=== PATIENT | male | born 1955 | race Caucasian/White ===

== ENCOUNTER → 2023-08-17 14:26 | Outpatient (REF) | payer OTHER, SELFPAY | LOC: RAD 14:26 | PROVIDERS: ATTENDING PHYSICIAN Nurse Practitioner Family | DX: M54.50 Low back pain, unspecified (principal) | CPT/HCPCS: 72110 ==

== ENCOUNTER → 2024-06-10 10:20 | Outpatient (REF) | payer MEDICARE, SELFPAY | LOC: RAD 10:20 | PROVIDERS: ATTENDING PHYSICIAN Internal Medicine Critical Care Medicine; FAMILY PHYSICIAN Family Medicine | DX: R91.8 Other nonspecific abnormal finding of lung field (principal) | CPT/HCPCS: 71250 ==

== ENCOUNTER → 2024-07-17 15:17 | Outpatient (REF) | payer OTHER, SELFPAY | LOC: RAD 15:17 | PROVIDERS: ATTENDING PHYSICIAN Radiology Diagnostic Radiology; FAMILY PHYSICIAN Family Medicine | DX: S05.50XA Penetrating wound with foreign body of unspecified eyeball, initial encounter (principal) | CPT/HCPCS: 70030 ==

== ENCOUNTER → 2024-07-18 20:37 | Outpatient (REF) | payer OTHER, SELFPAY | LOC: MRI 20:37 | PROVIDERS: ATTENDING PHYSICIAN Internal Medicine Rheumatology; FAMILY PHYSICIAN Family Medicine | DX: M54.50 Low back pain, unspecified (principal) | CPT/HCPCS: 72148 ==

== ENCOUNTER → 2024-07-25 08:22 | Emergency (ER) | payer OTHER, SELFPAY ==
[2024-07-25] VITALS (39 sets, daily range): BP systolic 77–150; BP diastolic 52–115; BMI 19.7
[2024-07-25] MEDS: NSS 1000 IV (09:00)
[2024-07-25] MEDS: CARDIZEM 15 MG IV (09:00)
[2024-07-25 09:02] LABS: % Basophils 0.6 % (0-2); % Eosinophils 2.1 % (0-6); % Immature Granulocytes 0.6 % (0-0.5); % Lymphocytes 10.5 % (20.5-51.1); % Monocytes 8.4 % (1.7-9.3); % Neutrophils 77.8 % (42.2-75.2); Absolute Basophils 0.1 10^3/uL (0-0.2); Absolute Eosinophils 0.3 10^3/uL (0-0.7); Absolute Immature Granulocytes 0.1 10^3/uL (0-0.05); Absolute Lymphocytes 1.7 10^3/uL (1.2-3.4); Absolute Monocytes 1.3 10^3/uL (0.1-0.6); Absolute Neutrophils 12.2 10^3/uL (1.4-6.5); Hematocrit 43.8 % (39.0-52.0); Mean Corpuscular Hgb 27.1 pg (27.0-31.0); Mean Corpuscular Volume 84.9 fL (80.0-94.0); Mean Platelet Volume 9.8 fL (7.4-10.4); Nucleated Red Blood Cells % 0 % (-); Platelet Count 345 10^3/uL (130-400); Red Blood Cell Count 5.16 10^6/uL (4.70-6.10); Red Cell Dist. Width 19.5 % (11.5-14.5); White Blood Cell Count 15.7 10^3/uL (4.8-10.8)
--- NOTE | 2024-07-25 09:05 | ED.GENMED ---
History of Present Illness
<Marcello Rodgers Jr., PA-C - Last Filed: 07/25/24 13:06>
General
Chief Complaint: Chest Pain
Source: patient
Exam Limitations: none
Time Seen by Provider: 07/25/24 08:37
Nursing documentation reviewed up to this point in time: agreed with
History of Present Illness
History of Present Illness:
68-year-old male past medical history of COPD, paroxysmal A-fib presenting to the emergency department today with concern outpatient started last night. Ongoing this morning has some lightheadedness some mild shortness of breath associated to mild
chest pain. Has had this many times in the past. Has been cardioverted in the past. Not currently anticoagulated.
Past History
<Marcello Rodgers Jr., PA-C - Last Filed: 07/25/24 13:06>
Past History
ED Past Medical History: Arrthythmia (Atrial fib), COPD, GERD, HTN, Hypercholesterolemia and Other (SVT with ablation, prostate cancer, IBS); Negative IDDM or NIDDM
ED Past Surgical History: Cardiac and Orthopedic
Social History
Tobacco: Smoker
Alcohol: Occasional
Drug: None
Personal:
Living: with family
Employment: Disabled
Family History
Family History: Hypertension and CAD
Review of Systems
<Marcello Rodgers Jr., PA-C - Last Filed: 07/25/24 13:06>
Review of Systems
Allergies reviewed?: Yes
All Other Systems: ROS reviewed and negative except as documented in HPI and ROS
Phy Exam
<Marcello Rodgers Jr., PA-C - Last Filed: 07/25/24 13:06>
Physical Exam
Physical Exam:
GENERAL: Alert , in no apparent distress
EYE: pupils equal and reactive
NECK: Supple, no significant adenopathy.
ENT: o/p clr, mmm.
CARDIAC: Regular rate and rhythm .
LUNGS: Clear breath sounds bilaterally, no acute respiratory distress, no wheezes/rales/rhonchi
ABDOMEN: Soft, without focal tenderness, no r/g, no cvat
NEUROLOGICAL: Alert and oriented, no focal neuro deficits
SKIN: Warm and dry, skin intact.
MUSCULOSKELETAL: No edema, well perfused.
PSYCH: Normal and appropriate interaction.
She is here yeah yeah yeah yeah for
Scores
<Marcello Rodgers Jr., PA-C - Last Filed: 07/25/24 13:06>
Heart Score for Chest Pain Patients
STEMI patient?: Not applicable
Course
<Marcello Rodgers Jr., PA-C - Last Filed: 07/25/24 13:06>
Orders/Labs/Results
Orders:
Orders
07/25/24 08:22
Electrocardiogram (*1) Urgent
Reason for Study: Atrial Fibrillation
07/25/24 08:23
EKG- Treatment ONCE
07/25/24 08:40
Complete Blood Count/With Diff Urgent
Comprehensive Metabolic Panel Urgent
PT/INR [Prothrombin Time] Urgent
Troponin I Urgent
07/25/24 08:43
0.9% Sodium Chloride 1000 ml [Nss] 1,000 ml IV BOLUS
Diltiazem HCl [Cardizem] 15 mg IV NOW STA
07/25/24 11:26
Propofol [Diprivan] 20 ml .ROUTE .STK-MED
07/25/24 12:07
Propofol [Diprivan] 50 mg IV NOW STA
Abnormal Lab Results
07/25/24
08:40
WBC 15.7 H 10^3/uL
(4.8-10.8)
MCHC 32.0 L g/dL
(33.0-37.0)
RDW 19.5 H %
(11.5-14.5)
Abs Immat Gran (auto) 0.1 H 10^3/uL
(0-0.05)
Absolute Neuts (auto) 12.2 H 10^3/uL
(1.4-6.5)
Absolute Monos (auto) 1.3 H 10^3/uL
(0.1-0.6)
Immature Gran % 0.6 H %
(0-0.5)
Neutrophils % 77.8 H %
(42.2-75.2)
Lymphocytes % 10.5 L %
(20.5-51.1)
Glucose 114 H mg/dl
(70-99)
Total Bilirubin 1.5 H mg/dl
(0.2-1.3)
Total Protein 6.1 L g/dl
(6.3-8.2)
07/25/24 08:40
07/25/24 08:40
Vital Signs
Initial and Last Documented VS:
Initial Vital Signs
Temp Pulse Resp Pulse Ox
97.8 F 148 16 98
07/25/24 08:28 07/25/24 08:28 07/25/24 08:28 07/25/24 08:28
Last Documented Vital Signs
Temp Pulse Resp BP Pulse Ox
97.9 F 83 19 150/84 95
07/25/24 12:48 07/25/24 12:48 07/25/24 12:48 07/25/24 12:48 07/25/24 12:48
<Magdaleno Roman MD - Last Filed: 07/25/24 10:18>
Orders/Labs/Results
Orders:
Orders
07/25/24 08:22
Electrocardiogram (*1) Urgent
Reason for Study: Atrial Fibrillation
07/25/24 08:23
EKG- Treatment ONCE
07/25/24 08:40
Complete Blood Count/With Diff Urgent
Comprehensive Metabolic Panel Urgent
PT/INR [Prothrombin Time] Urgent
Troponin I Urgent
07/25/24 08:43
0.9% Sodium Chloride 1000 ml [Nss] 1,000 ml IV BOLUS
Diltiazem HCl [Cardizem] 15 mg IV NOW STA
07/25/24 11:26
Propofol [Diprivan] 20 ml .ROUTE .STK-MED
07/25/24 12:07
Propofol [Diprivan] 50 mg IV NOW STA
Abnormal Lab Results
07/25/24
08:40
WBC 15.7 H 10^3/uL
(4.8-10.8)
MCHC 32.0 L g/dL
(33.0-37.0)
RDW 19.5 H %
(11.5-14.5)
Abs Immat Gran (auto) 0.1 H 10^3/uL
(0-0.05)
Absolute Neuts (auto) 12.2 H 10^3/uL
(1.4-6.5)
Absolute Monos (auto) 1.3 H 10^3/uL
(0.1-0.6)
Immature Gran % 0.6 H %
(0-0.5)
Neutrophils % 77.8 H %
(42.2-75.2)
Lymphocytes % 10.5 L %
(20.5-51.1)
Glucose 114 H mg/dl
(70-99)
Total Bilirubin 1.5 H mg/dl
(0.2-1.3)
Total Protein 6.1 L g/dl
(6.3-8.2)
07/25/24 08:40
07/25/24 08:40
Vital Signs
Initial and Last Documented VS:
Initial Vital Signs
Temp Pulse Resp Pulse Ox
97.8 F 148 16 98
07/25/24 08:28 07/25/24 08:28 07/25/24 08:28 07/25/24 08:28
Last Documented Vital Signs
Temp Pulse Resp BP Pulse Ox
97.9 F 83 19 150/84 95
07/25/24 12:48 07/25/24 12:48 07/25/24 12:48 07/25/24 12:48 07/25/24 12:48
Procedures
<Marcello Rodgers Jr., PA-C - Last Filed: 07/25/24 13:06>
Moderate Sedation
ASA Risk Score: Class II
Chart and allergies reviewed: Yes
Consent for anesthesia obtained: Yes
Time out completed (validating right patient & procedure): Yes
Moderate Sedation Start Time(when first medication is given): 12:07
History of difficult intubation: No
Airway free of obstruction: Yes
Patient has a gag reflex: Yes
Patient is able to open mouth: Yes
Patient has no dentures: Yes
Patient has no loose teeth: Yes
Medication administered by Provider during Moderate Sedation: IV Propofol (mg)
Total dose administered: 50
Time drug administered: 12:07
Cardioversion
Indication:: Afib
Performed by:: Dr. Roman, Myself
Synchronized?: Yes
Energy Used: 200 joules
Number of attempts: 1
Successful?: Yes
Complications: none
ASA Risk Score: Class II
Any reaction or bad outcome to prior sedation/anesthesia?: No history of a reaction
Sedation level to be attained: moderate
Chart and allergies reviewed: Yes
Patient reassessed prior to sedation: Yes
Time out completed at (validating right patient & procedure): 12:07
History of difficult intubation: No
Airway free of obstruction: Yes
Patient has a gag reflex: Yes
Patient is able to open mouth: Yes
Patient has no dentures: Yes
Patient has no loose teeth: Yes
Medication administered by Provider during Moderate Sedation: IV Propofol (mg)
Total dose administered: 50
Time drug administered: 12:07
Start Time: 12:07
Stop Time: 12:18
<Marcello Rodgers Jr., PA-C - Last Filed: 07/25/24 13:06>
MDM/Problems Addressed
MDM/Problems Addressed:
68-year-old male presenting to the emergency department today with concerns of palpitations for the last night. Patient appears to be in A-fib with rapid ventricular response. Patient not on any rate control meds at baseline. Heart rate in the
120s to 140s otherwise vital signs are normal. Patient no distress. Initial labs showing elevated white count. Patient was given dose of Cardizem with improving heart rate patient still somewhat symptomatic. Patient is requesting cardioversion.
Case discussed with cardiology that was okay with proceeding with cardioversion at this point. Cardioversion was performed and successful. Patient otherwise stable for discharge on [facility].
<Marcello Rodgers Jr., PA-C - Last Filed: 07/25/24 13:06>
*Critical Care Note
Total Time (30-74mins, 75-104mins- exclusive of procedures): Not Applicable
ED Attending Note
<Marcello Rodgers Jr., PA-C - Last Filed: 07/25/24 13:06>
-
Portions of this chart may have been created with voice recognition software.� Occasional wrong word or��sound alike� substitutions may have occurred due to the inherent limitations of voice recognition software.
<Magdaleno Roman MD - Last Filed: 07/25/24 10:18>
ED Attending Note
Patient seen and examined by attending physician: Yes
ED Attending Note:
I have seen and evaluated the patient with a [id number] encounter. I have spoken to the advance practicer provider and involved in the medical history, the physical exam, medical decision making.
Evaluation and management service: agree unless noted differently below.
Results interpretation: agree unless noted differently below.
Focused HPI: 68-year-old male with history as documented notable for paroxysmal A-fib presents to the ER with his for evaluation of chest discomfort, fatigue consistent with his normal A-fib symptoms. He says that they started abruptly at
10:30 PM last night, persisted this morning and so he came to the ER. He denies any other complaints. He is not on long-term anticoagulation.
Physical exam: Awake alert no distress. Tachycardic otherwise normal vitals. Irregular regular rhythm. No edema in the legs.
Medical Decision Makin-year-old male presents with his typical A-fib symptoms. EKG confirms A-fib with RVR. He was rate controlled successfully but still mildly symptomatic, he is requested to be cardioverted. Discussed with cardiology given
rather clear onset reasonable to proceed with ED cardioversion. Had a long discussion about risks and benefits given lack of long-term anticoagulation patient wishes to proceed with the procedure.
Discharge Plan
Departure
Patient Disposition: Home (Routine Discharge)
Date of Disposition: 07/25/24
Time of Disposition: 13:02
Patient with high blood pressure during this ER visit?: No
Condition: Good
Covid-19: Not Applicable
Discharge Problem:
Atrial fibrillation
Instructions: Atrial fibrillation - Discharge instructions, MODERATE SEDATION ADULT
Prescriptions:
New
Eliquis 5 mg tablet
5 mg PO BID 28 Days Qty: 56 0RF
No Action
folic acid 1 MG tablet
1 mg PO DAILY
multivitamin Tablet
1 tab PO DAILY
cholecalciferol (vitamin D3) 50 mcg (2,000 unit) Tablet
50 mcg PO DAILY
acetaminophen [Tylenol] 325 mg Tablet
650 mg PO BID
omeprazole 40 mg Capsule,Delayed Release(Dr/Ec)
40 mg PO DAILY
methylprednisolone 2 mg Tablet
6 mg PO DAILY
methotrexate sodium 2.5 mg Tablet
20 mg PO WE
Trelegy Ellipta 100-62.5-25 mcg Blister With Device
1 inh INHALATION R DAILY
Referrals:
Sai Aguilar MD [Family Provider] -
Eric Knowles MD [Active] - (The cardiology office will call you with an appointment to be seen in the next 3 to 4 weeks.)
Activity Restrictions/Additional Instructions:
You came to the emergency department today with concerns of atrial fibrillation. Here you had a cardioversion. You are now in sinus rhythm. Please follow closely with cardiology. Please also take Eliquis twice daily for the next 4 weeks. Return
for any worsening, new or concerning symptoms.
Interventions
Interventions:
*Risk Screen - Suicide Last Done: 07/25/24 08:28
*General Assessment Last Done: 07/25/24 09:00
*Neglect/Abuse Screening Last Done: 07/25/24 08:28
ED- Fall Risk Assessment Last Done: 07/25/24 09:00
*ED COVID-19 Vaccine History Last Done: 07/25/24 09:00
ED- Cardiac Assessment Last Done: 07/25/24 09:00
Discharge Date and Time
Print Language: GHANAIAN
[2024-07-25 09:14] LABS: INR 0.99; PT 13.6 Sec (11.4-14.6)
[2024-07-25 09:17] LABS: ALT (SGPT) 27 U/L (0-50); AST (SGOT) 27 U/L (17-59); Albumin 3.8 g/dl (3.5-5.0); Alkaline Phosphatase 80 U/L (38-126); Blood Urea Nitrogen 14 mg/dl (9-20); Calcium 8.7 mg/dl (8.4-10.2); Carbon Dioxide 29 mmol/L (22-30); Chloride 100 mmol/L (98-107); Glucose 114 mg/dl (70-99); Potassium 4.5 mmol/L (3.5-5.1); Sodium 137 mmol/L (135-145); Total Bilirubin 1.5 mg/dl (0.2-1.3); Total Protein 6.1 g/dl (6.3-8.2)
[2024-07-25 09:29] LABS: Troponin I 0.024 ng/ml
[2024-07-25 09:37] LABS: Estimated Creatinine Clearance 79 ml/min; eGFR > 60.00
[2024-07-25] MEDS: DIPRIVAN 50 MG IV (12:22)
[2024-07-25] MEDS: ELIQUIS 5 MG PO (13:20)
--- NOTE | 2024-07-25 13:20 | EDRN ---
Reviewed discharge instructions with patient and his . Verbalized understanding. taken to car in wheelchair.
== END | disposition home or self-care (01) ==
LOC: EMR 08:22
PROVIDERS: EMERGENCY PHYSICIAN Emergency Medicine; FAMILY PHYSICIAN Family Medicine; OTHER PHYSICIAN Internal Medicine Cardiovascular Disease
DX: I48.91 Unspecified atrial fibrillation (principal); J44.9 Chronic obstructive pulmonary disease, unspecified; I48.0 Paroxysmal atrial fibrillation; E78.00 Pure hypercholesterolemia, unspecified; K21.9 Gastro-esophageal reflux disease without esophagitis; I10 Essential (primary) hypertension; K58.9 Irritable bowel syndrome, unspecified; F17.200 Nicotine dependence, unspecified, uncomplicated; Z79.01 Long term (current) use of anticoagulants; Z82.49 Family history of ischemic heart disease and other diseases of the circulatory system; Z85.46 Personal history of malignant neoplasm of prostate
CPT/HCPCS: 99283; 92960; 96374; 96375; 96361; 80053; 84484; 85025; 85610; 93005

== ENCOUNTER → 2024-07-31 07:32 | Outpatient (REF) | payer OTHER, SELFPAY | LOC: RAD 07:32 | PROVIDERS: ATTENDING PHYSICIAN Internal Medicine Cardiovascular Disease; FAMILY PHYSICIAN Family Medicine | DX: Z72.0 Tobacco use (principal); I73.9 Peripheral vascular disease, unspecified; I48.0 Paroxysmal atrial fibrillation | CPT/HCPCS: 76770; 93922; 93925 ==

== ENCOUNTER 2024-08-06 16:55 | Emergency (ER) | payer OTHER, SELFPAY ==
[2024-08-06] VITALS (12 sets, daily range): BP systolic 98–149; BP diastolic 73–103; BMI 19.7
[2024-08-06 17:21] LABS: % Basophils 0.1 % (0-2); % Eosinophils 0.1 % (0-6); % Immature Granulocytes 1.1 % (0-0.5); % Lymphocytes 5.4 % (20.5-51.1); % Monocytes 6.1 % (1.7-9.3); % Neutrophils 87.2 % (42.2-75.2); Absolute Immature Granulocytes 0.2 10^3/uL (0-0.05); Absolute Lymphocytes 0.8 10^3/uL (1.2-3.4); Absolute Monocytes 0.9 10^3/uL (0.1-0.6); Absolute Neutrophils 12.8 10^3/uL (1.4-6.5); Hematocrit 41.6 % (39.0-52.0); Hemoglobin 13.1 g/dL (13.0-18.0); Mean Corp Hgb Conc. 31.5 g/dL (33.0-37.0); Mean Corpuscular Hgb 26.5 pg (27.0-31.0); Mean Platelet Volume 9.5 fL (7.4-10.4); Nucleated Red Blood Cells % 0 % (-); Platelet Count 333 10^3/uL (130-400); Red Blood Cell Count 4.95 10^6/uL (4.70-6.10); Red Cell Dist. Width 19.5 % (11.5-14.5); White Blood Cell Count 14.7 10^3/uL (4.8-10.8)
[2024-08-06 17:30] LABS: ALT (SGPT) 44 U/L (0-50); AST (SGOT) 29 U/L (17-59); Albumin 4.1 g/dl (3.5-5.0); Alkaline Phosphatase 113 U/L (38-126); Blood Urea Nitrogen 20 mg/dl (9-20); Calcium 9.2 mg/dl (8.4-10.2); Carbon Dioxide 25 mmol/L (22-30); Chloride 99 mmol/L (98-107); Glucose 148 mg/dl (70-99); Potassium 5.2 mmol/L (3.5-5.1); Sodium 134 mmol/L (135-145); Total Bilirubin 0.7 mg/dl (0.2-1.3); Total Protein 6.4 g/dl (6.3-8.2); eGFR > 60.00
--- NOTE | 2024-08-06 17:36 | ED.GENMED ---
History of Present Illness
General
Chief Complaint: Chest Pain
Time Seen by Provider: 08/06/24 17:30
History of Present Illness
History of Present Illness:
TIME OF INITIAL ENCOUNTER: 5:40 PM
HPI: Patient feels that he went back into A-fib at 4 PM today. He has had a Maze procedure in the past. He is known to Dr. Knowles. He was here less than 2 weeks ago and had an electrical cardioversion at that time. He has no significant chest
pain but does have palpitations that he relates to being in atrial fibrillation. He request to be cardioverted.
EXAM:
GENERAL: Well appearing in no distress
HEENT: Moist oral mucosa
CARDIOVASCULAR: No murmurs, tachycardic heart rate, irregular rhythm, No chest wall tenderness
PULMONARY: No respiratory distress, breath sounds are clear and equal
ABDOMEN: Soft with no peritoneal signs, no tenderness
NEUROLOGIC: Excellent strength all extremities, no coordination deficits
PSYCHIATRIC: Appropriate mental status, normal insight and judgement
EXTREMITIES: Nontender, no edema, moves all extremities equally
SKIN: No rash, no lesions
NUMBER AND COMPLEXITY OF PROBLEMS ADDRESSED AT THE ENCOUNTER
� Chronic conditions affecting care: COPD, atrial fibrillation, SVT, has had Maze procedure
� Acute Exacerbation and/or Progression of Chronic Illness: This is an acute but recurring problem
� Differential Diagnosis includes: A-fib with RVR, atrial flutter, electrolyte abnormality
AMOUNT AND/OR COMPLEXITY OF DATA TO BE REVIEWED AND ANALYZED
� I performed an independent evaluation of and my interpretation is:
EKG: A-fib, right bundle branch block, ventricular rate 157
CT:
X-rays:
Laboratory Studies:White count 14.7, sodium 134, potassium 5.2, glucose 148
Other:
� Review of other/old records: I reviewed the last 2 electrical cardioversions and both times there is 50 mg of propofol and 200 J were used
� Clinical information was obtained by an independent historian: I spoke to the at bedside
� Prescriptions/Medications Considered but not given:
� Further testing considered but not performed:
RISK OF COMPLICATIONS AND/OR MORBIDITY OR MORTALITY OF PATIENT MANAGEMENT
� Social determinants of health affecting care: Lives at home
� Discussion with other providers: I notified Dr. Berkowitz of patient's presentation and the patient's request to be electrically cardioverted
� Escalation of care including admission/observation vs risk of discharge considered: Leukocytosis again noted which has been previously seen several times. I notified Dr. Berkowitz who agrees with electrocardioversion and no
medication changes until seen by Dr. Knowles next week. Old records indicate that the patient received 50 mg of propofol�this was given again today however the patient unfortunately did experience pain this time during the procedure.
ANY OTHER UPDATES:
7:20 PM: No further issues, remains in sinus.
Past History
Past History
ED Past Medical History: Arrthythmia (Atrial fib), COPD, GERD, HTN, Hypercholesterolemia and Other (SVT with ablation, prostate cancer, IBS); Negative IDDM or NIDDM
ED Past Surgical History: Cardiac and Orthopedic
Social History
Tobacco: Smoker
Alcohol: Occasional
Drug: None
Personal:
Living: with family
Employment: Disabled
Family History
Family History: Hypertension and CAD
Phy Exam
Physical Exam
Physical Exam:
See HPI
Scores
Heart Score for Chest Pain Patients
STEMI patient?: Not applicable
Course
Orders/Labs/Results
Orders:
Orders
08/06/24 16:56
Electrocardiogram (*1) Urgent
Reason for Study: Chest Pain
Cardiac Monitoring- Treatment ONCE
EKG- Treatment ONCE
IV Insert/Care/Rem.- Treatment PRN
O2 Therapy [RESP] Urgent
Titrate/Wean O2 to maintain O2 sat greater than (%): 90
Special Instructions: Maintain sats >/=90%
Pulse Ox/spot Check [RESP] Urgent
Quantity: 1
Special Instructions: ON ROOM AIR
08/06/24 17:07
Complete Blood Count/With Diff Urgent
Comprehensive Metabolic Panel Urgent
Troponin I Urgent
08/06/24 18:03
Propofol [Diprivan] 20 ml .ROUTE .STK-MED
Abnormal Lab Results
08/06/24
17:07
WBC 14.7 H 10^3/uL
(4.8-10.8)
MCH 26.5 L pg
(27.0-31.0)
MCHC 31.5 L g/dL
(33.0-37.0)
RDW 19.5 H %
(11.5-14.5)
Abs Immat Gran (auto) 0.2 H 10^3/uL
(0-0.05)
Absolute Neuts (auto) 12.8 H 10^3/uL
(1.4-6.5)
Absolute Lymphs (auto) 0.8 L 10^3/uL
(1.2-3.4)
Absolute Monos (auto) 0.9 H 10^3/uL
(0.1-0.6)
Immature Gran % 1.1 H %
(0-0.5)
Neutrophils % 87.2 H %
(42.2-75.2)
Lymphocytes % 5.4 L %
(20.5-51.1)
Sodium 134 L mmol/L
(135-145)
Potassium 5.2 H mmol/L
(3.5-5.1)
Glucose 148 H mg/dl
(70-99)
08/06/24 17:07
08/06/24 17:07
Vital Signs
Initial and Last Documented VS:
Initial Vital Signs
Temp Pulse Resp BP Pulse Ox
36.9 C 160 18 146/103 96
08/06/24 17:00 08/06/24 17:00 08/06/24 17:00 08/06/24 17:00 08/06/24 17:00
Last Documented Vital Signs
Temp Pulse Resp BP Pulse Ox
36.5 C 81 16 118/73 97
08/06/24 19:00 08/06/24 19:10 08/06/24 19:10 08/06/24 19:10 08/06/24 19:10
Procedures
Cardioversion
Indication:: Afib
Performed by:: , Dr. Leon
Synchronized?: Yes
Energy Used: 200 joules
Number of attempts: 1
Successful?: Yes
ASA Risk Score: Class III
Any reaction or bad outcome to prior sedation/anesthesia?: History unavailable
Sedation level to be attained: moderate
Chart and allergies reviewed: Yes
Patient reassessed prior to sedation: Yes
Time out completed at (validating right patient & procedure): 18:40
History of difficult intubation: No
Airway free of obstruction: Yes
Patient has a gag reflex: Yes
Patient is able to open mouth: Yes
Patient has no dentures: Yes
Patient has no loose teeth: Yes
Medication administered by Provider during Moderate Sedation: IV Propofol (mg)
Total dose administered: 50
Time drug administered: 18:40
Start Time: 18:40
Stop Time: 18:51
*Critical Care Note
Total Time (30-74mins, 75-104mins- exclusive of procedures): Not Applicable
ED Attending Note
-
Portions of this chart may have been created with voice recognition software.� Occasional wrong word or��sound alike� substitutions may have occurred due to the inherent limitations of voice recognition software.
Discharge Plan
Departure
Patient Disposition: Home (Routine Discharge)
Date of Disposition: 08/06/24
Time of Disposition: 19:13
Patient with high blood pressure during this ER visit?: Yes
Discharge Problem:
Atrial fibrillation with rapid ventricular response
Instructions: Atrial fibrillation, Cardioversion, MODERATE SEDATION ADULT
Prescriptions:
No Action
folic acid 1 MG tablet
1 mg PO DAILY
multivitamin Tablet
1 tab PO DAILY
cholecalciferol (vitamin D3) 50 mcg (2,000 unit) Tablet
50 mcg PO DAILY
acetaminophen [Tylenol] 325 mg Tablet
650 mg PO BID
omeprazole 40 mg Capsule,Delayed Release(Dr/Ec)
40 mg PO DAILY
methylprednisolone 2 mg Tablet
6 mg PO DAILY
methotrexate sodium 2.5 mg Tablet
20 mg PO WE
Trelegy Ellipta 100-62.5-25 mcg Blister With Device
1 inh INHALATION R DAILY
Eliquis 5 mg tablet
5 mg PO BID 28 Days Qty: 56 0RF
Referrals:
Sai Aguilar MD [Family Provider] -
Eric Knowles MD [Active] - Follow up in 1 week
Activity Restrictions/Additional Instructions:
Follow-up with Dr. Knowles. Return here if worse or other concerns.
Interventions
Interventions:
*Risk Screen - Suicide Last Done: 08/06/24 17:00
*General Assessment Last Done: 08/06/24 17:00
*Neglect/Abuse Screening Last Done: 08/06/24 17:00
ED- Fall Risk Assessment Last Done: 08/06/24 17:49
*ED COVID-19 Vaccine History Last Done: 08/06/24 17:00
ED- Cardiac Assessment Last Done: 08/06/24 17:49
Discharge Date and Time
Print Language: ESTONIAN
[2024-08-06 17:42] LABS: Troponin I < 0.012 ng/ml
== END 2024-08-06 19:38 | disposition home or self-care (01) ==
LOC: EMR 16:55
PROVIDERS: EMERGENCY PHYSICIAN Emergency Medicine; FAMILY PHYSICIAN Family Medicine
DX: I48.91 Unspecified atrial fibrillation (principal); E78.00 Pure hypercholesterolemia, unspecified; I10 Essential (primary) hypertension; J44.9 Chronic obstructive pulmonary disease, unspecified; K21.9 Gastro-esophageal reflux disease without esophagitis; F17.200 Nicotine dependence, unspecified, uncomplicated; Z85.46 Personal history of malignant neoplasm of prostate
CPT/HCPCS: 92960; 99152; 99285; 80053; 84484; 85025; 93005

== ENCOUNTER 2024-08-14 21:56 | Emergency (ER) | payer OTHER, SELFPAY ==
[2024-08-14 22:03] VITALS: BP 120/79
[2024-08-14 22:34] VITALS: BMI 19.7
[2024-08-14 22:48] LABS: % Basophils 0.2 % (0-2); % Eosinophils 0.5 % (0-6); % Immature Granulocytes 0.9 % (0-0.5); % Lymphocytes 8.6 % (20.5-51.1); % Monocytes 7.7 % (1.7-9.3); % Neutrophils 82.1 % (42.2-75.2); Absolute Eosinophils 0.1 10^3/uL (0-0.7); Absolute Immature Granulocytes 0.1 10^3/uL (0-0.05); Absolute Lymphocytes 1.4 10^3/uL (1.2-3.4); Absolute Monocytes 1.2 10^3/uL (0.1-0.6); Absolute Neutrophils 13.3 10^3/uL (1.4-6.5); Hematocrit 40.9 % (39.0-52.0); Hemoglobin 12.9 g/dL (13.0-18.0); Mean Corp Hgb Conc. 31.5 g/dL (33.0-37.0); Mean Corpuscular Hgb 26.5 pg (27.0-31.0); Mean Corpuscular Volume 84.2 fL (80.0-94.0); Mean Platelet Volume 8.8 fL (7.4-10.4); Nucleated Red Blood Cells % 0 % (-); Platelet Count 328 10^3/uL (130-400); Red Blood Cell Count 4.86 10^6/uL (4.70-6.10); White Blood Cell Count 16.2 10^3/uL (4.8-10.8)
--- NOTE | 2024-08-14 22:59 | ED.GENMED ---
History of Present Illness
General
Chief Complaint: Chest Pain
Source: patient
Exam Limitations: none
Time Seen by Provider: 08/14/24 22:52
History of Present Illness
History of Present Illness:
See MDM
Past History
Past History
ED Past Medical History: Arrthythmia (Atrial fib), COPD, GERD, HTN, Hypercholesterolemia and Other (SVT with ablation, prostate cancer, IBS); Negative IDDM or NIDDM
ED Past Surgical History: Cardiac and Orthopedic
Social History
Tobacco: Smoker
Alcohol: Occasional
Drug: None
Personal:
Living: with family
Employment: Disabled
Family History
Family History: Hypertension and CAD
Phy Exam
Physical Exam
Physical Exam:
See MDM
Scores
Heart Score for Chest Pain Patients
STEMI patient?: No
History: Slightly or Non-Suspicious
ECG: Normal
Age: >/= 65 years
Risk Factors: 1 or 2 Risk Factors
Troponin: </= Normal Limit
Heart Score for Chest Pain Patients: 3
Heart Score Risk: 2.5% MACE over next 6 weeks
Course
Orders/Labs/Results
Orders:
Orders
08/14/24 21:58
Electrocardiogram (*1) Urgent
Reason for Study: Chest Pain
EKG- Treatment ONCE
08/14/24 22:12
Cardiac Monitoring- Treatment ONCE
IV Insert/Care/Rem.- Treatment PRN
O2 Therapy [RESP] Urgent
Titrate/Wean O2 to maintain O2 sat greater than (%): 90
Special Instructions: Maintain sats >/=90%
Pulse Ox/spot Check [RESP] Urgent
Quantity: 1
Special Instructions: ON ROOM AIR
08/14/24 22:38
Complete Blood Count/With Diff Urgent
Comprehensive Metabolic Panel Urgent
Troponin I Urgent
08/14/24 22:58
Diltiazem HCl [Cardizem] 20 mg IV NOW STA
08/15/24 00:07
Propofol [Diprivan] 20 ml .ROUTE .STK-MED
08/15/24 00:23
Ondansetron Injectable [Zofran] 4 mg IV NOW STA
08/15/24 00:32
EKG [Electrocardiogram (*1)] Urgent
Reason for Study: Tachycardia
EKG- Treatment ONCE
Abnormal Lab Results
08/14/24
22:38
WBC 16.2 H 10^3/uL
(4.8-10.8)
Hgb 12.9 L g/dL
(13.0-18.0)
MCH 26.5 L pg
(27.0-31.0)
MCHC 31.5 L g/dL
(33.0-37.0)
RDW 19.0 H %
(11.5-14.5)
Abs Immat Gran (auto) 0.1 H 10^3/uL
(0-0.05)
Absolute Neuts (auto) 13.3 H 10^3/uL
(1.4-6.5)
Absolute Monos (auto) 1.2 H 10^3/uL
(0.1-0.6)
Immature Gran % 0.9 H %
(0-0.5)
Neutrophils % 82.1 H %
(42.2-75.2)
Lymphocytes % 8.6 L %
(20.5-51.1)
Glucose 117 H mg/dl
(70-99)
Total Protein 6.0 L g/dl
(6.3-8.2)
08/14/24 22:38
08/14/24 22:38
Vital Signs
Initial and Last Documented VS:
Initial Vital Signs
Temp Pulse Resp BP Pulse Ox
97.8 F 95 16 120/79 93
08/14/24 22:03 08/14/24 22:03 08/14/24 22:03 08/14/24 22:03 08/14/24 22:03
Last Documented Vital Signs
Temp Pulse Resp BP Pulse Ox
98.0 F 69 17 111/57 100
08/15/24 00:30 08/15/24 00:40 08/15/24 00:40 08/15/24 00:40 08/15/24 00:40
Procedures
Moderate Sedation
ASA Risk Score: Class II
Chart and allergies reviewed: Yes
Consent for anesthesia obtained: Yes
Time out completed (validating right patient & procedure): Yes
Moderate Sedation Start Time(when first medication is given): 12:30
History of difficult intubation: No
Airway free of obstruction: Yes
Patient has a gag reflex: Yes
Patient is able to open mouth: Yes
Patient has no dentures: Yes
Patient has no loose teeth: Yes
Medication administered by Provider during Moderate Sedation: IV Propofol (mg)
Total dose administered: 75
Time drug administered: 12:30
Moderate Sedation Procedure End Time: 12:45
Comment: Time out 1228
Cardioversion
Indication:: Afib
Performed by:: Meño Stack DO
Synchronized?: Yes
Energy Used: 150 joules
Number of attempts: 1
Successful?: Yes
ASA Risk Score: Class II
Any reaction or bad outcome to prior sedation/anesthesia?: No history of a reaction
Sedation level to be attained: moderate
Chart and allergies reviewed: Yes
Patient reassessed prior to sedation: Yes
Time out completed at (validating right patient & procedure): 12:28
History of difficult intubation: No
Airway free of obstruction: Yes
Patient has a gag reflex: Yes
Patient is able to open mouth: Yes
Patient has no dentures: Yes
Patient has no loose teeth: Yes
Medication administered by Provider during Moderate Sedation: IV Propofol (mg)
Total dose administered: 75
Time drug administered: 12:30
Start Time: 12:30
Stop Time: 12:45
MDM/Problems Addressed
Differential Diagnosis Includes:
HPI and MDM Narrative:
68-year-old male presenting for evaluation of A-fib. Patient states he felt himself going to A-fib about 6 hours ago. Patient was hoping it would self resolve. He has required cardioversion in the past. He denies chest pain but states he does
have chest discomfort. He claims compliance with his metoprolol and Eliquis.
Will give dose of IV Cardizem. If that is unsuccessful, we will discuss cardioversion
Physical exam
General: Well appearing and non-toxic
HEENT: protecting airway
Neck: appears supple
CV: No evidence of cyanosis. Tachycardic and irregular
Resp: No accessory muscle use
Abd: Non-distended
Extremities: No deformities
Neuro: alert
Psych: Normal affect
Skin: Intact
Problems Addressed including Acute and Chronic Conditions affecting care:
1. A-fib with RVR
Acuity: acute
Prognosis: unstable
Details: Will give dose of IV Cardizem and attempt to chemically cardiovert. If unsuccessful, will consider bedside synchronized cardioversion
Updates
After IV Cardizem, patient is rate controlled but to symptomatic. Patient requesting cardioversion. He did tolerate cardioversion well and is now in a sinus rhythm. He states he will follow-up with his composition board press operator
Differential Diagnosis (but not limited to): Electrolyte abnormality, A-fib
Testing considered: TSH
Drug therapy (if applicable): OTC meds, please see d/c instruction regarding Rx drugs
Amount and/or Complexity of Data Reviewed
Clinical info obtained from: Patient
External data reviewed: N/A
Labs I independently reviewed (but not limited to): Troponin normal
Radiology: N/A
Pulse Ox: not hypoxic
EKG independently reviewed: A-fib with RVR, normal axis, no STEMI
Senior Military Analyst: A-fib with RVR
Critical Care: The high probability of a clinically significant, sudden or life threatening deterioration of the cardiovascular system(s) required my full and direct attention, intervention and personal management. The aggregate critical care time
was 33 minutes. This time is in addition to time spent performing reported procedures but includes the following:
[x] Data Review and interpretation
[x] Patient assessment and monitoring of vital signs
[x] Documentation
[x] Medication orders and management
Risk of Complication:
Social Determinants of health: Good social support
Discussed with other providers: N/A
Escalation of Care includes Admit/Obs: After being observed in the Emergency Department, pt stable for discharge.
Occasional wrong word or 'sound a like' substitutions may have occurred due to the inherent limitations of voice recognition software. Read the chart carefully and recognize, using context, where substitutions have occurred.
*Critical Care Note
Total Time (30-74mins, 75-104mins- exclusive of procedures): 33 min
ED Attending Note
-
Portions of this chart may have been created with voice recognition software.� Occasional wrong word or��sound alike� substitutions may have occurred due to the inherent limitations of voice recognition software.
Discharge Plan
Departure
Patient Disposition: Home (Routine Discharge)
Date of Disposition: 08/15/24
Time of Disposition: 00:44
Patient with high blood pressure during this ER visit?: No
Discharge Problem:
A-fib
Instructions: Cardioversion, MODERATE SEDATION ADULT
Prescriptions:
No Action
folic acid 1 MG tablet
1 mg PO DAILY
multivitamin Tablet
1 tab PO DAILY
cholecalciferol (vitamin D3) 50 mcg (2,000 unit) Tablet
50 mcg PO DAILY
acetaminophen [Tylenol] 325 mg Tablet
650 mg PO BID
omeprazole 40 mg Capsule,Delayed Release(Dr/Ec)
40 mg PO DAILY
methylprednisolone 2 mg Tablet
6 mg PO DAILY
methotrexate sodium 2.5 mg Tablet
20 mg PO WE
Trelegy Ellipta 100-62.5-25 mcg Blister With Device
1 inh INHALATION R DAILY
Eliquis 5 mg tablet
5 mg PO BID 28 Days Qty: 56 0RF
Referrals:
Sai Aguilar MD [Family Provider] -
Activity Restrictions/Additional Instructions:
Please return for any worsening symptoms.
You may return at any time if you have further concerns.
Please follow up with your doctor at the first available appointment, preferably this week. Please call your composition board press operator as well.
Thank you for choosing [facility].
Interventions
Interventions:
*Risk Screen - Suicide Last Done: 08/14/24 22:03
*General Assessment Last Done: 08/14/24 22:03
*Neglect/Abuse Screening Last Done: 08/14/24 22:03
ED- Fall Risk Assessment Last Done: 08/14/24 23:09
*ED COVID-19 Vaccine History Last Done: 08/14/24 22:03
ED- Cardiac Assessment Last Done: 08/14/24 22:28
Discharge Date and Time
Print Language: WELSH
[2024-08-14 23:00] VITALS: BP 115/76
[2024-08-14] MEDS: CARDIZEM 20 MG IV (23:02)
[2024-08-14 23:10] LABS: Troponin I 0.012 ng/ml
[2024-08-14 23:14] LABS: ALT (SGPT) 32 U/L (0-50); AST (SGOT) 24 U/L (17-59); Albumin 3.8 g/dl (3.5-5.0); Alkaline Phosphatase 114 U/L (38-126); Blood Urea Nitrogen 19 mg/dl (9-20); Calcium 8.9 mg/dl (8.4-10.2); Carbon Dioxide 24 mmol/L (22-30); Chloride 101 mmol/L (98-107); Estimated Creatinine Clearance 90 ml/min; Glucose 117 mg/dl (70-99); Potassium 4.4 mmol/L (3.5-5.1); Sodium 136 mmol/L (135-145); Total Bilirubin 1.2 mg/dl (0.2-1.3); eGFR > 60.00
[2024-08-14 23:15] VITALS: BP 107/74
[2024-08-14 23:30] VITALS: BP 114/78
[2024-08-14 23:45] VITALS: BP 115/81
[2024-08-15] VITALS (11 sets, daily range): BP systolic 105–149; BP diastolic 57–80
[2024-08-15] MEDS: ZOFRAN 4 MG IV (00:25)
== END 2024-08-15 01:33 | disposition home or self-care (01) ==
LOC: EMR 21:56
PROVIDERS: EMERGENCY PHYSICIAN Student in an Organized Health Care Education/Training Program; FAMILY PHYSICIAN Family Medicine
DX: R07.89 Other chest pain (principal); I48.91 Unspecified atrial fibrillation; J44.9 Chronic obstructive pulmonary disease, unspecified; K21.9 Gastro-esophageal reflux disease without esophagitis; I10 Essential (primary) hypertension; E78.00 Pure hypercholesterolemia, unspecified; F17.200 Nicotine dependence, unspecified, uncomplicated; K58.9 Irritable bowel syndrome, unspecified; Z82.49 Family history of ischemic heart disease and other diseases of the circulatory system; Z85.46 Personal history of malignant neoplasm of prostate
CPT/HCPCS: 99283; 96374; 96375; 80053; 84484; 85025; 93005

== ENCOUNTER 2024-08-25 21:38 | Emergency (ER) | payer OTHER, SELFPAY ==
[2024-08-25] VITALS (13 sets, daily range): BP systolic 100–150; BP diastolic 66–118; BMI 19.5
[2024-08-25 22:10] LABS: % Basophils 0.4 % (0-2); % Eosinophils 0.7 % (0-6); % Immature Granulocytes 0.7 % (0-0.5); % Lymphocytes 9.4 % (20.5-51.1); % Monocytes 7.8 % (1.7-9.3); Absolute Basophils 0.1 10^3/uL (0-0.2); Absolute Eosinophils 0.1 10^3/uL (0-0.7); Absolute Immature Granulocytes 0.1 10^3/uL (0-0.05); Absolute Lymphocytes 1.3 10^3/uL (1.2-3.4); Absolute Monocytes 1.1 10^3/uL (0.1-0.6); Absolute Neutrophils 11.5 10^3/uL (1.4-6.5); Hematocrit 40.7 % (39.0-52.0); Hemoglobin 12.9 g/dL (13.0-18.0); Mean Corp Hgb Conc. 31.7 g/dL (33.0-37.0); Mean Corpuscular Hgb 26.1 pg (27.0-31.0); Mean Corpuscular Volume 82.4 fL (80.0-94.0); Nucleated Red Blood Cells % 0 % (-); Platelet Count 316 10^3/uL (130-400); Red Blood Cell Count 4.94 10^6/uL (4.70-6.10); Red Cell Dist. Width 19.4 % (11.5-14.5); White Blood Cell Count 14.2 10^3/uL (4.8-10.8)
--- NOTE | 2024-08-25 22:15 | ED.GENMED ---
History of Present Illness
General
Chief Complaint: Cardiac Symptoms
Source: patient
Exam Limitations: none
Time Seen by Provider: 08/25/24 21:58
Nursing documentation reviewed up to this point in time: agreed with
History of Present Illness
History of Present Illness:
Pleasant 68-year-old male presents with atrial fibrillation. He has known A-fib and is on Eliquis and metoprolol. Around 645 this evening he went into A-fib. He came here for cardioversion. Patient has followed with Dr. Knowles but states that
he has seen both groups in the past. Patient had a maze procedure by Dr. Villatoro recently. Patient has had 3 cardioversions in the last month. Patient states that Cardizem does not work and prefers another synchronized cardioversion. He has not
missed a dose of Eliquis.
Past History
Past History
ED Past Medical History: Arrthythmia (Atrial fib), COPD, GERD, HTN, Hypercholesterolemia and Other (SVT with ablation, prostate cancer, IBS); Negative IDDM or NIDDM
ED Past Surgical History: Cardiac and Orthopedic
Social History
Tobacco: Smoker
Alcohol: Occasional
Drug: None
Personal:
Living: with family
Employment: Disabled
Family History
Family History: Hypertension and CAD
Review of Systems
Review of Systems
Allergies reviewed?: Yes
All Other Systems: ROS reviewed and negative except as documented in HPI and ROS
Constitutional: Reports no symptoms
EENT: Reports no symptoms
Respiratory: Reports no symptoms
Cardiac: Reports no symptoms
ABD/GI: Reports no symptoms
: Reports no symptoms
Musculoskeletal: Reports no symptoms
Skin: Reports no symptoms
Neurological: Reports no symptoms
Endocrine: Reports no symptoms
Hematologic/Lymphatic: Reports no symptoms
Psychiatric: Reports anxiety
Phy Exam
General Physical Exam
General Presentation: well appearing and no apparent distress
General Skin: warm and dry
General Habitus: normal
General Mental: alert
General Hydration: appears well hydrated
ENT Exam
ENT Exam: EOMI, pharynx normal, neck supple and normocephalic
Eye Exam
Eye Exam: PERRL, cornea clear and conjunctiva normal
Cardiovascular Exam
Cardiovascular Exam: irregularly irregular and tachycardia
Pulmonary Exam
Pulmonary Exam: lungs clear, no respiratory distress, no rales, no crackles, no rhonchi, no stridor, no wheezing and no cough
Gastrointestinal Exam
Gastrointestinal Exam: normal bowel sounds, non tender, soft, no organomegaly, no pulsatile mass and non distended
Neurological Exam
Neurological Exam: alert, oriented x3, no motor deficits and speech normal
Musculoskeletal Exam
Musculoskeletal Exam: full ROM and no edema
Skin Exam
Skin Exam: normal color, warm/dry, no rash and no petechia
Psychiatric Exam
Psychiatric Exam: normal mood/affect
Course
Orders/Labs/Results
Orders:
Orders
08/25/24 21:39
Electrocardiogram (*1) Urgent
Reason for Study: Atrial Fibrillation
EKG- Treatment ONCE
08/25/24 22:00
Complete Blood Count/With Diff Urgent
Comprehensive Metabolic Panel Urgent
Troponin I Urgent
08/25/24 22:37
Propofol [Diprivan] 20 ml .ROUTE .STK-MED
Abnormal Lab Results
08/25/24
22:00
WBC 14.2 H 10^3/uL
(4.8-10.8)
Hgb 12.9 L g/dL
(13.0-18.0)
MCH 26.1 L pg
(27.0-31.0)
MCHC 31.7 L g/dL
(33.0-37.0)
RDW 19.4 H %
(11.5-14.5)
Abs Immat Gran (auto) 0.1 H 10^3/uL
(0-0.05)
Absolute Neuts (auto) 11.5 H 10^3/uL
(1.4-6.5)
Absolute Monos (auto) 1.1 H 10^3/uL
(0.1-0.6)
Immature Gran % 0.7 H %
(0-0.5)
Neutrophils % 81.0 H %
(42.2-75.2)
Lymphocytes % 9.4 L %
(20.5-51.1)
Glucose 136 H mg/dl
(70-99)
Total Protein 6.0 L g/dl
(6.3-8.2)
08/25/24 22:00
08/25/24 22:00
Vital Signs
Initial and Last Documented VS:
Initial Vital Signs
Temp Pulse Resp BP Pulse Ox
98 F 139 20 119/87 97
08/25/24 21:44 08/25/24 21:44 08/25/24 21:44 08/25/24 21:44 08/25/24 21:44
Last Documented Vital Signs
Temp Pulse Resp BP Pulse Ox
98.2 F 64 19 114/76 95
08/25/24 23:16 08/25/24 23:45 08/25/24 23:45 08/25/24 23:30 08/25/24 23:15
Procedures
Cardioversion
Indication:: Afib
Performed by:: Myself
Synchronized?: Yes
Energy Used: 200 joules
Number of attempts: 1
Successful?: Yes
ASA Risk Score: Class II
Any reaction or bad outcome to prior sedation/anesthesia?: No history of a reaction
Sedation level to be attained: moderate
Chart and allergies reviewed: Yes
Patient reassessed prior to sedation: Yes
Time out completed at (validating right patient & procedure): 22:40
History of difficult intubation: No
Airway free of obstruction: Yes
Patient has a gag reflex: Yes
Patient is able to open mouth: Yes
Patient has no dentures: No
Patient has no loose teeth: Yes
Medication administered by Provider during Moderate Sedation: IV Propofol (mg)
Total dose administered: 75
Time drug administered: 22:44
Start Time: 22:44
Stop Time: 22:54
*Critical Care Note
Total Time (30-74mins, 75-104mins- exclusive of procedures): 35 (Critical care statement: A total of 35 minutes of critical care time was provided for this patient. This time is separate from time utilized to perform the aforementioned documented
procedures. Aggregate critical care time includes only time during which I was engaged in work directl)
ED Attending Note
-
Portions of this chart may have been created with voice recognition software.� Occasional wrong word or��sound alike� substitutions may have occurred due to the inherent limitations of voice recognition software.
Discharge Plan
Departure
Patient Disposition: Home (Routine Discharge)
Date of Disposition: 08/25/24
Time of Disposition: 23:55
Patient with high blood pressure during this ER visit?: Yes
Condition: Good
Discharge Problem:
Atrial fibrillation with RVR, Moderate sedation
Instructions: Atrial fibrillation - Discharge instructions, MODERATE SEDATION ADULT
Prescriptions:
No Action
folic acid 1 MG tablet
1 mg PO DAILY
multivitamin Tablet
1 tab PO DAILY
cholecalciferol (vitamin D3) 50 mcg (2,000 unit) Tablet
50 mcg PO DAILY
acetaminophen [Tylenol] 325 mg Tablet
650 mg PO BID
omeprazole 40 mg Capsule,Delayed Release(Dr/Ec)
40 mg PO DAILY
methylprednisolone 2 mg Tablet
6 mg PO DAILY
methotrexate sodium 2.5 mg Tablet
20 mg PO WE
Trelegy Ellipta 100-62.5-25 mcg Blister With Device
1 inh INHALATION R DAILY
Eliquis 5 mg tablet
5 mg PO BID 28 Days Qty: 56 0RF
Referrals:
Sai Aguilar MD [Family Provider] -
Eric Knowles MD [Active] - Next open appointment
Activity Restrictions/Additional Instructions:
It was a pleasure meeting you and taking part in your care. We hope for your continued healing and wellness.
Please read discharge instructions in their entirety. However, they are for general education and may not describe your exact diagnosis at discharge. Information on your ER visit and medical conditions were discussed with you along with appropriate
follow up information...
If indicated, please take your medications as instructed and indicated on discharge paperwork.
Please schedule a follow up appointment as directed. Call to schedule an appointment
Please return to the emergency department with ANY change in, persisting, or worsening of symptoms. If any of your symptoms do not improve, or persist, or become more severe within 6-12 hours, please return to the emergency department for further
care.
Please return to the emergency department if you develop a headache, neck pain/stiffness, fever greater than 100.4F, chest pain, shortness of breath, persistent nausea, vomiting, slurred speech, difficulty walking, numbness/tingling, weakness, signs
of infection or any other symptoms that are worrisome to you.
If you have any questions or concerns please do not hesitate to call the Hospital at or E-mail me directly at [email or web address]
Interventions
Interventions:
*Risk Screen - Suicide Last Done: 08/25/24 21:44
*General Assessment Last Done: 08/25/24 21:44
*Neglect/Abuse Screening Last Done: 08/25/24 21:44
ED- Fall Risk Assessment Last Done: 08/25/24 21:50
*ED COVID-19 Vaccine History Last Done: 08/25/24 22:29
ED- Pulmonary Assessment Last Done: 08/25/24 22:28
ED- Cardiac Assessment Last Done: 08/25/24 23:48
Discharge Date and Time
Print Language: CROATIAN
[2024-08-25 22:27] LABS: ALT (SGPT) 44 U/L (0-50); AST (SGOT) 26 U/L (17-59); Albumin 3.5 g/dl (3.5-5.0); Alkaline Phosphatase 105 U/L (38-126); Blood Urea Nitrogen 18 mg/dl (9-20); Calcium 9.3 mg/dl (8.4-10.2); Carbon Dioxide 28 mmol/L (22-30); Chloride 102 mmol/L (98-107); Estimated Creatinine Clearance 70 ml/min; Glucose 136 mg/dl (70-99); Potassium 4.3 mmol/L (3.5-5.1); Sodium 137 mmol/L (135-145); Total Bilirubin 0.5 mg/dl (0.2-1.3); eGFR > 60.00
[2024-08-25 22:33] LABS: Troponin I < 0.012 ng/ml
== END 2024-08-26 00:09 | disposition home or self-care (01) ==
LOC: EMR 21:38
PROVIDERS: Student in an Organized Health Care Education/Training Program; EMERGENCY PHYSICIAN Student in an Organized Health Care Education/Training Program; FAMILY PHYSICIAN Family Medicine
DX: I48.91 Unspecified atrial fibrillation (principal); J44.9 Chronic obstructive pulmonary disease, unspecified; K21.9 Gastro-esophageal reflux disease without esophagitis; I10 Essential (primary) hypertension; E78.00 Pure hypercholesterolemia, unspecified; F17.200 Nicotine dependence, unspecified, uncomplicated; Z85.46 Personal history of malignant neoplasm of prostate; Z79.01 Long term (current) use of anticoagulants
CPT/HCPCS: 99291; 92960; 99152; 80053; 84484; 85025; 93005

== ENCOUNTER 2024-09-03 08:05 | Inpatient (IN) | payer OTHER, SELFPAY ==
[2024-09-03 08:30] VITALS: BP 149/78
[2024-09-03 08:43] VITALS: BMI 19.3
--- NOTE | 2024-09-03 10:10 | PTCARENOTE ---
Rec'd pt as a direct admit from home for Tikosyn loading. Pt AAOX3 w/no c/o CP or SOB, but pt states that when he 'goes into Afib for than a minute, he has mild, midsternal CP. Pt in SR on telemetry & with baseline Tikosyn EKG. Pt noted to go in &
out of Afib w/HR in the 80's-90's intermittently. Pt's VSS w/HR in the 60's & BP 149/78 on arrival. Pt's at bedside. This RN discussed pt's current med list & collected two of pt's own meds which are not formulary & Lia Ch contacted re:
order for pt to take own. Meds sent & rec'd back from pharmacy w/barcodes for scanning. Meds placed in wow in the room. New R FA INT placed as ordered. Pt w/callbell within reach & plan of care ongoing.
[2024-09-03 10:21] LABS: Hematocrit 36.5 % (39.0-52.0); Hemoglobin 11.3 g/dL (13.0-18.0); Mean Corpuscular Hgb 25.5 pg (27.0-31.0); Mean Corpuscular Volume 82.4 fL (80.0-94.0); Mean Platelet Volume 8.8 fL (7.4-10.4); Platelet Count 298 10^3/uL (130-400); Red Blood Cell Count 4.43 10^6/uL (4.70-6.10); Red Cell Dist. Width 19.2 % (11.5-14.5); White Blood Cell Count 12.3 10^3/uL (4.8-10.8)
--- NOTE | 2024-09-03 10:30 | W.PN.CARDCBS ---
Addendum entered and electronically signed by Ray Martin MD 09/03/24 12:12:
68-year-old man with history of PVI x 2 with convergent maze in 2022, breaking through on flecainide and now admitted for dofetilide loading. He complains of fatigue metoprolol.
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
history of prostate cancer
149/78, pulse 66, respiratory 18, afebrile, sats 100% no distress, appears somewhat older than stated age, head neck exam unremarkable, ecchymoses on forearms, diminished breath sounds, soft MR murmur, abdomen benign extremities without clubbing
cyanosis or edema
Normal sinus rhythm, QTc 435, right bundle branch block
BUN/creatinine 18 and 0.7,
White count 12.3, hemoglobin 11.3
Impression:
See below
Plan:
Dofetilide loading
Currently in sinus rhythm
Switch metoprolol to nebivolol 5 mg daily related to complaints of fatigue
Original Note:
Today's Communication / Plan
-
Start Tikosyn 500 mcg q 12 hours
No missed doses of Eliquis
Impression / Plan
-
PCP: Dr. Sai Aguilar
Power Brake Operator: Dr. Knowles
Impression:
Direct admission for Tikosyn loading
Paroxysmal Afib
s/p PVI 05/06/2015
s/p PVI 09/25/2017
s/p Convergent MAZE 08/22/2022
Previous Flecainide therapy that was stopped due to ineffectiveness
Paroxysmal atypical atrial flutter
SVT s/p AVNRT ablation 2004
Chronic RBBB
Nonobstructive CAD by cath 2014
HLD
OA
GERD
Tobacco abuse
COPD
Hyponatremia
Echo 06/28/2022: EF 65-70%, at least moderate MR, mild TR, estimated PAP 39 mmHg
Echo 09/17/22: EF 55 to 60%, no WMA, moderate MR, no MS, aortic sclerosis without stenosis, mild TR with PAP 36 mmHg, no significant change compared to echo 06/2022
Plan:
-Patient was seen in the office 08/13/2024 to discuss recurrent A-fib and was agreeable to loading of Tikosyn. Patient has had CVA on 07/25/2024, 08/06/2024, 08/14/2024 and most recently on 08/25/2024. He is in SR at this time and QTc 435 ms with
baseline RBBB on ECG prior to first dose.
-Labs pending for 09/03/24, but Cre was 0.9 on 08/25/24 which is a CrCl of 68 using actual body weight so will plan on ordering Tikosyn 500 mcg q 12 hours and follow QTc.
-Will continue Toprol XL 50 mg daily and follow HRs on tele. Currently SR at 64
-No missed doses of Eliquis 5 mg BID (age 68, Cre 0.9)
-He did not take any of his usual meds this morning and he also prefers to take his own doses of Trelegy Ellipta, vilazodone and fluticasone. Orders amended and now doses of morning meds ordered.
Progress Note - Power Brake Operator
Subjective
Date of Service: September 03, 2024
No palpitations
Objective
Labs:
09/03/24 10:09
Labs
Hgb 11.3 g/dL (13.0-18.0) L 09/03/24 10:09
Hct 36.5 % (39.0-52.0) L 09/03/24 10:09
Plt Count 298 10^3/uL (130-400) 09/03/24 10:09
Vital Signs and I&O:
Vital Signs
Temp Pulse Resp BP Pulse Ox
97.5 F 66 18 149/78 100
09/03/24 08:44 09/03/24 09:00 09/03/24 08:44 09/03/24 08:30 09/03/24 08:44
Vital Signs
Temp Pulse Resp BP Pulse Ox
97.5 F 66 18 149/78 100
09/03/24 08:44 09/03/24 09:00 09/03/24 08:44 09/03/24 08:30 09/03/24 08:44
Physical Exam
Physical Exam
GEN: NAD. AAOx3
HEENT: MMM
LUNGS: RA. No audible wheeze
CV: SR on tele. Reg
ABD: ND
EXT: No edema
NEURO: Gross non-focal
SKIN: No rash
[2024-09-03 10:39] LABS: ALT (SGPT) 60 U/L (0-50); AST (SGOT) 41 U/L (17-59); Albumin 3.1 g/dl (3.5-5.0); Alkaline Phosphatase 118 U/L (38-126); Blood Urea Nitrogen 18 mg/dl (9-20); Calcium 9.2 mg/dl (8.4-10.2); Carbon Dioxide 30 mmol/L (22-30); Chloride 101 mmol/L (98-107); Estimated Creatinine Clearance 88 ml/min; Glucose 100 mg/dl (70-99); Magnesium 1.7 mg/dl (1.6-2.3); Sodium 136 mmol/L (135-145); Total Bilirubin 0.7 mg/dl (0.2-1.3); Total Protein 5.5 g/dl (6.3-8.2); eGFR > 60.00
[2024-09-03] MEDS: TYLENOL 650 MG PO ×3 (11:01→22:32)
[2024-09-03] MEDS: TIKOSYN 500 MCG PO ×2 (11:01→22:35)
[2024-09-03] MEDS: MEDROL 6 MG PO (11:01)
[2024-09-03] MEDS: LOW STRENGTH ASPIRIN 81 MG PO (11:01)
[2024-09-03] MEDS: ELIQUIS 5 MG PO ×2 (11:01→20:28)
[2024-09-03 11:30] VITALS: BP 130/65
[2024-09-03] MEDS: NICODERM TRANSDERMAL 21 MG TRANSDERM (13:14)
[2024-09-03] MEDS: NON-FORMULARY ITEM INH (15:34)
--- NOTE | 2024-09-03 15:38 | CM ---
spoke to pt in room, he is prev indep, lives with his in a 1 [address] home with 4 steps to enter. he denies any dme's or dc plannin gneeds. plan is for dc to home after tikosyn loading.
[2024-09-03 15:52] VITALS: BP 151/66
[2024-09-03 17:23] VITALS: BMI 19.3
[2024-09-03 19:37] VITALS: BP 134/77
[2024-09-03] MEDS: PEPCID 20 MG PO (20:28)
--- NOTE | 2024-09-03 21:55 | PTCARENOTE ---
Pt rec'd at beginning of shift awake,alert sinus on telemetry. Pt stated he had a dull ache ,pressure 3 out of 10 in his chest, non radiating. ecg completed. Pt also stated he did not take any of his meds pre adm and was looking for Pepcid to take
for heartburn. ECG and request for Pepcid sent to Dr Anaya , order obtained for Pepcid po which was given. No changes noted per Dr Anaya on pts ecg.
[2024-09-03 22:29] VITALS: BP 135/75
[2024-09-03] MEDS: NON-FORMULARY ITEM 1 MG PO (22:30)
[2024-09-03] MEDS: FLEXERIL 5 MG PO (22:41)
--- NOTE | 2024-09-04 00:35 | PTCARENOTE ---
no further c/o chest discomfort at HS. 2hr post Tikosyn dose showed QTc of 480 sinus rhythm
[2024-09-04 04:35] VITALS: BP 127/79
[2024-09-04 04:51] VITALS: BMI 19.1
[2024-09-04 05:07] LABS: Hemoglobin 11.4 g/dL (13.0-18.0); Mean Corp Hgb Conc. 31.7 g/dL (33.0-37.0); Mean Corpuscular Hgb 25.9 pg (27.0-31.0); Mean Corpuscular Volume 81.8 fL (80.0-94.0); Mean Platelet Volume 9.1 fL (7.4-10.4); Platelet Count 276 10^3/uL (130-400); Red Cell Dist. Width 18.8 % (11.5-14.5); White Blood Cell Count 11.7 10^3/uL (4.8-10.8)
[2024-09-04 05:34] LABS: Blood Urea Nitrogen 14 mg/dl (9-20); Carbon Dioxide 30 mmol/L (22-30); Chloride 100 mmol/L (98-107); Estimated Creatinine Clearance 87 ml/min; Glucose 93 mg/dl (70-99); Potassium 4.7 mmol/L (3.5-5.1); Sodium 136 mmol/L (135-145); eGFR > 60.00
--- NOTE | 2024-09-04 07:42 | W.PN.CARDCBS ---
Addendum entered and electronically signed by Brando Ferreira MD 09/04/24 10:36:
I saw and examined the patient.
The Public Address System Installer's note was reviewed and I agree with the note.
Comment: Briefly, 68-year-old man past medical history of persistent atrial fibrillation with multiple ablations in the past including convergent maze who presents for Tikosyn loading
No cardiac complaints this morning
Maintaining sinus rhythm on telemetry
QTc is stable on my review of the ECG from this a.m.
Patient subsequently received his third dose of Tikosyn
Continue with serial ECGs post-dosing
Eliquis for cardioembolic prophylaxis
Rest per Lia Eaton
Original Note:
Today's Communication / Plan
-
Recheck ECG now and if QTc stable will give 3rd dose of Tikosyn this morning
51 min face to face and coordination of care
Impression / Plan
-
PCP: Dr. Sai Aguilar
Oil Change Technician: Dr. Knowles
Impression:
Direct admission for Tikosyn loading
Paroxysmal Afib
s/p PVI 05/06/2015
s/p PVI 09/25/2017
s/p Convergent MAZE 08/22/2022
recent CVs 07/25/2024, 08/06/2024, 08/14/2024 and 08/25/2024.
Previous Flecainide therapy that was stopped due to ineffectiveness
Paroxysmal atypical atrial flutter
SVT s/p AVNRT ablation 2004
Chronic RBBB
Nonobstructive CAD by cath 2014
HLD
OA
GERD
Tobacco abuse
COPD
Hypomagnesemia
Echo 06/28/2022: EF 65-70%, at least moderate MR, mild TR, estimated PAP 39 mmHg
Echo 09/17/22: EF 55 to 60%, no WMA, moderate MR, no MS, aortic sclerosis without stenosis, mild TR with PAP 36 mmHg, no significant change compared to echo 06/2022
Plan:
-QTc 480 ms after 3rd dose of Tikosyn 500 mcg q 12 hours that was given Monday. Check ECG now and if stable will proceed with 4th dose of Tikosyn 500 mcg Monday
-Magnesium 1.7 on 09/03/24, will supplement now
-Tele reviewed by me and there were brief episodes of Atach x2 lasting less than 10 seconds 09/03/24, patient was asymptomatic, overall remains in SR
-Dr. Martin changed outpatient dose of Toprol XL to nebivolol due to fatigue
-No missed doses of Eliquis 5 mg BID (age 68, Cre 0.9)
Progress Note - Oil Change Technician
Subjective
Date of Service: September 04, 2024
Feels well, no palpitations
Objective
Labs:
09/04/24 04:42
09/04/24 04:42
Labs
Hgb 11.4 g/dL (13.0-18.0) L 09/04/24 04:42
Hct 36.0 % (39.0-52.0) L 09/04/24 04:42
Plt Count 276 10^3/uL (130-400) 09/04/24 04:42
Sodium 136 mmol/L (135-145) 09/04/24 04:42
Potassium 4.7 mmol/L (3.5-5.1) 09/04/24 04:42
BUN 14 mg/dl (9-20) 09/04/24 04:42
Creatinine 0.7 mg/dL (0.7-1.3) 09/04/24 04:42
Glucose 93 mg/dl (70-99) 09/04/24 04:42
Vital Signs and I&O:
Vital Signs
Temp Pulse Resp BP Pulse Ox
97.3 F 62 20 127/79 97
09/04/24 04:36 09/04/24 04:45 09/04/24 04:36 09/04/24 04:35 09/04/24 04:36
Vital Signs
Temp Pulse Resp BP Pulse Ox
97.3 F 62 20 127/79 97
09/04/24 04:36 09/04/24 04:45 09/04/24 04:36 09/04/24 04:35 09/04/24 04:36
Intake & Output
09/02/24 09/03/24 09/04/24 09/05/24
06:59 06:59 06:59 06:59
Intake Total 1440 / 1440
Balance 1440 / 1440
Physical Exam
Physical Exam
GEN: NAD. AAOx3
HEENT: MMM
LUNGS: RA. No audible wheeze
CV: SR on tele. Reg
ABD: ND
EXT: No edema
NEURO: Gross non-focal
SKIN: No rash
[2024-09-04 07:57] VITALS: BP 114/80
[2024-09-04] MEDS: NON-FORMULARY ITEM 1 UNIT INH (08:21)
[2024-09-04] MEDS: NICODERM TRANSDERMAL 21 MG TRANSDERM (08:52)
[2024-09-04] MEDS: MAGNESIUM OXIDE 500 MG PO (08:52)
[2024-09-04] MEDS: LOW STRENGTH ASPIRIN 81 MG PO (08:52)
[2024-09-04] MEDS: PROTONIX 20 MG PO (08:52)
[2024-09-04] MEDS: BYSTOLIC 5 MG PO (08:52)
[2024-09-04] MEDS: FOLVITE 1 MG PO (08:52)
[2024-09-04] MEDS: ELIQUIS 5 MG PO ×2 (08:52→19:40)
[2024-09-04] MEDS: TYLENOL 650 MG PO ×3 (08:52→21:08)
[2024-09-04] MEDS: MEDROL 6 MG PO (08:53)
[2024-09-04] MEDS: TIKOSYN 500 MCG PO ×2 (09:03→21:08)
[2024-09-04] MEDS: METHOTREXATE 10 MG PO ×2 (11:06→21:09)
[2024-09-04 11:48] VITALS: BP 117/71
--- NOTE | 2024-09-04 12:34 | PTCARENOTE ---
pt is AOx3, no complaints of pain or discomfort. Independent OOB. SR on tele monitor, VSS. Tikosyn dose #3 given this AM. Call cifuentes within reach.
[2024-09-04 15:38] VITALS: BP 130/76
[2024-09-04 19:12] VITALS: BP 142/81
[2024-09-04] MEDS: FLEXERIL 5 MG PO (21:08)
[2024-09-04] MEDS: NON-FORMULARY ITEM 1 MG PO (21:13)
[2024-09-04 22:18] VITALS: BP 126/69
[2024-09-04] MEDS: PEPCID 20 MG PO (23:29)
--- NOTE | 2024-09-04 23:51 | PTCARENOTE ---
Pt npo after mn. Remains in sinus at this time. QTc 2 hrs after 4th dose of Tikosyn is 470. At 2339 pt given Pepcid for c/o indigestion.
[2024-09-05 00:07] VITALS: BP 137/69
--- NOTE | 2024-09-05 00:11 | PTCARENOTE ---
Pt states Pepcid worked well,feeling much improved.
[2024-09-05 04:14] VITALS: BP 133/79
[2024-09-05 04:15] VITALS: BMI 19.2
[2024-09-05 05:21] LABS: Blood Urea Nitrogen 15 mg/dl (9-20); Calcium 8.8 mg/dl (8.4-10.2); Carbon Dioxide 30 mmol/L (22-30); Chloride 102 mmol/L (98-107); Estimated Creatinine Clearance 88 ml/min; Glucose 90 mg/dl (70-99); Potassium 4.7 mmol/L (3.5-5.1); Sodium 135 mmol/L (135-145); eGFR > 60.00
--- NOTE | 2024-09-05 07:21 | W.PN.CARDCBS ---
Addendum entered and electronically signed by Lia Ch PA-C 09/05/24 12:42:
[id number]
Addendum entered and electronically signed by Eric Knowles MD 09/05/24 08:12:
Patient seen and examined
Agree with GLADIS Ch's note and assessment
Agree with GLADIS Ch's plan
Personally reviewed all ECGs
Sinus rhythm on telemetry
����Physical Exam
���������������������General:��no apparent distress, not acutely ill
���������������������������Neck:��supple. no meningeal signs. normal psoterior pharynx������������������������
���������������������������Heart:��s1/s2 regular rate and rhythm, no murmur. equal radial pulses.
��������������������������Lungs: ��no acute respiratory distress. clear bilaterally
����������������������Abdomen:�normal bowel sounds. not tender. no CVAT
��������������������������Neuro:��alert and oriented. no focal neurological deficits
������������������������������Skin: ��no rash
�����������������������Psychiatric:�well kept. interactive and cooperative
�����������������������Extremities:��no edema. no calf tenderness. negative homans. good distal pulses
Impression:
Direct admission for Tikosyn loading
Paroxysmal Afib
s/p PVI 05/06/2015
s/p PVI 09/25/2017
s/p Convergent MAZE 08/22/2022
recent CVs 07/25/2024, 08/06/2024, 08/14/2024 and 08/25/2024. Previous Flecainide therapy that was stopped due to ineffectiveness
Paroxysmal atypical atrial flutter
SVT s/p AVNRT ablation 2004
Chronic RBBB
Nonobstructive CAD by cath 2014
HLD
OA
GERD
Tobacco abuse
COPD
Hypomagnesemia
Echo 06/28/2022: EF 65-70%, at least moderate MR, mild TR, estimated PAP 39 mmHg
Echo 09/17/22: EF 55 to 60%, no WMA, moderate MR, no MS, aortic sclerosis without stenosis, mild TR with PAP 36 mmHg, no significant change compared to echo 06/2022
Plan:
-QTc 470 ms after 4th dose of Tikosyn 500 mcg Monday night. 5th dose scheduled for 09/05/24
-Remains in SR. No need for CV, diet order resumed
-Potassium stable at 4.7 on my review of labs 09/05/24
-Tele reviewed by me 09/05/24 and no significant pauses or bradycardia. Outpatient dose of Toprol XL was changed to nebivolol by Dr. Martin earlier this admission due to fatigue. He seems to be tolerating the change
-No missed doses of Eliquis 5 mg BID (age 68, Cre 0.9)
-Pending QTc on ECG after 5th dose of Tikosyn on morning the patient can be d/c'd to home
Original Note:
Today's Communication / Plan
-
5th dose of Tikosyn this morning and if QTc stable on ECG then will d/c to home
Diet resumed
Impression / Plan
-
PCP: Dr. Sai Aguilar
Claims Support Specialist: Dr. Knowles
Impression:
Direct admission for Tikosyn loading
Paroxysmal Afib
s/p PVI 05/06/2015
s/p PVI 09/25/2017
s/p Convergent MAZE 08/22/2022
recent CVs 07/25/2024, 08/06/2024, 08/14/2024 and 08/25/2024.
Previous Flecainide therapy that was stopped due to ineffectiveness
Paroxysmal atypical atrial flutter
SVT s/p AVNRT ablation 2004
Chronic RBBB
Nonobstructive CAD by cath 2014
HLD
OA
GERD
Tobacco abuse
COPD
Hypomagnesemia
Echo 06/28/2022: EF 65-70%, at least moderate MR, mild TR, estimated PAP 39 mmHg
Echo 09/17/22: EF 55 to 60%, no WMA, moderate MR, no MS, aortic sclerosis without stenosis, mild TR with PAP 36 mmHg, no significant change compared to echo 06/2022
Plan:
-QTc 470 ms after 4th dose of Tikosyn 500 mcg Monday night. 5th dose scheduled for 09/05/24
-Remains in SR. No need for CV, diet order resumed
-Potassium stable at 4.7 on my review of labs 09/05/24
-Tele reviewed by me 09/05/24 and no significant pauses or bradycardia. Outpatient dose of Toprol XL was changed to nebivolol by Dr. Martin earlier this admission due to fatigue.
-No missed doses of Eliquis 5 mg BID (age 68, Cre 0.9)
-Pending QTc on ECG after 5th dose of Tikosyn on morning the patient can be d/c'd to home
Progress Note - Claims Support Specialist
Subjective
Date of Service: September 05, 2024
Sleeping
Objective
Labs:
09/04/24 04:42
09/05/24 04:21
Labs
Hgb 11.4 g/dL (13.0-18.0) L 09/04/24 04:42
Hct 36.0 % (39.0-52.0) L 09/04/24 04:42
Plt Count 276 10^3/uL (130-400) 09/04/24 04:42
Sodium 135 mmol/L (135-145) 09/05/24 04:21
Potassium 4.7 mmol/L (3.5-5.1) 09/05/24 04:21
BUN 15 mg/dl (9-20) 09/05/24 04:21
Creatinine 0.7 mg/dL (0.7-1.3) 09/05/24 04:21
Glucose 90 mg/dl (70-99) 09/05/24 04:21
Vital Signs and I&O:
Vital Signs
Temp Pulse Resp BP Pulse Ox
97.6 F 55 18 133/79 97
09/05/24 04:15 09/05/24 06:15 09/05/24 04:15 09/05/24 04:14 09/05/24 04:15
Vital Signs
Temp Pulse Resp BP Pulse Ox
97.6 F 55 18 133/79 97
09/05/24 04:15 09/05/24 06:15 09/05/24 04:15 09/05/24 04:14 09/05/24 04:15
Intake & Output
09/03/24 09/04/24 09/05/24 09/06/24
06:59 06:59 06:59 06:59
Intake Total 1440 / 1440 240 / 240
Balance 1440 / 1440 240 / 240
Physical Exam
Physical Exam
GEN: NAD.
LUNGS: RA. No audible wheeze
CV: SR on tele. Reg
ABD: ND
EXT: No edema
NEURO: Gross non-focal
SKIN: No rash
[2024-09-05 07:22] VITALS: BP 140/76
[2024-09-05] MEDS: NON-FORMULARY ITEM 1 UNIT INH (07:55)
[2024-09-05] MEDS: PROTONIX 20 MG PO (08:16)
[2024-09-05] MEDS: FOLVITE 1 MG PO (08:16)
[2024-09-05] MEDS: TIKOSYN 500 MCG PO (08:16)
[2024-09-05] MEDS: BYSTOLIC 5 MG PO (08:17)
[2024-09-05] MEDS: LOW STRENGTH ASPIRIN 81 MG PO (08:17)
[2024-09-05] MEDS: TYLENOL 650 MG PO (08:18)
[2024-09-05] MEDS: NICODERM TRANSDERMAL 21 MG TRANSDERM (08:19)
[2024-09-05] MEDS: ELIQUIS 5 MG PO (08:19)
[2024-09-05] MEDS: MAGNESIUM OXIDE 500 MG PO (08:19)
[2024-09-05] MEDS: MEDROL 6 MG PO (08:19)
[2024-09-05 11:25] VITALS: BP 115/69
--- NOTE | 2024-09-05 12:38 | W.DS.TRANS ---
DC Summary - Relationship Management Lead
-
Discharge Instructions:
Sleep Apnea Risk Intermediate
Discharge Diagnosis/Procedures Tikosyn (dofetilide) loading for paroxysmal
atrial fibrillation
Diet As tolerated
Activity No restrictions
Driving Restrictions As prior to admission
Bathing Restrictions None
Instructions:
Stand-Alone Forms:
Changes to Home Medications: Yes
Discharge Medications:
DC Medications w/original date entered in [facility]
folic acid 1 mg tablet 1 mg PO DAILY Supplement 07/30/17
cholecalciferol (vitamin D3) 50 mcg (2,000 unit) tablet 50 mcg PO DAILY Supplement 01/22/23
multivitamin 1 tab PO DAILY Supplement 01/22/23
acetaminophen 325 mg tablet (Tylenol) 650 mg PO TID Pain 07/25/24
fluticasone fur. 100 mcg-umeclid 62.5 mcg-vilant 25 mcg inhalat.powder (Trelegy Ellipta) 1 inh inhalation R DAILY Lung/Breathing Issues 07/25/24
methotrexate sodium 2.5 mg tablet 20 mg PO WE Autoimmune Disorder 07/25/24
methylprednisolone 2 mg tablet 6 mg PO DAILY Autoimmune Disorder 07/25/24
omeprazole 40 mg capsule,delayed release 40 mg PO DAILY Gastrointestinal Issue 07/25/24
aspirin 81 mg tablet 81 mg PO DAILY Blood Clot Prevention/Tx 09/03/24
cyclobenzaprine 5 mg tablet 5 mg PO HS Muscle Spasms 09/03/24
vilazodone 10 mg tablet 10 mg PO DAILY Mental Health/Anxiety 09/03/24
apixaban 5 mg tablet (Eliquis) 5 mg PO BID Blood Clot Prevention/Tx 09/04/24
dofetilide 500 mcg capsule 500 mcg PO Q12 Arrhythmia #60 caps 09/05/24
nebivolol 2.5 mg tablet 5 mg (2 x 2.5 mg) PO DAILY Arrhythmia #30 tabs 09/05/24
Home Medication Changes
New to Tikosyn
Toprol XL stopped
New to nebivolol
Pending Results: No
== END 2024-09-05 13:45 | disposition home or self-care (01) | DRG 310 ==
LOC: IVU 08:05
PROVIDERS: Physician Assistant Medical; ADMITTING PHYSICIAN Internal Medicine Cardiovascular Disease
PROC: 3E033RZ Introduction of Antiarrhythmic into Peripheral Vein, Percutaneous Approach (ICD-10-PCS; 2024-09-03)
DX: I48.0 Paroxysmal atrial fibrillation (principal); J44.9 Chronic obstructive pulmonary disease, unspecified; I25.10 Atherosclerotic heart disease of native coronary artery without angina pectoris; E78.5 Hyperlipidemia, unspecified; I45.10 Unspecified right bundle-branch block; I10 Essential (primary) hypertension; I48.4 Atypical atrial flutter; I47.19 Other supraventricular tachycardia; Z79.01 Long term (current) use of anticoagulants
CPT/HCPCS: 80048; 80053; 83735; 85027; 93005; 94640; J8610

== ENCOUNTER → 2024-09-12 10:58 | Outpatient (REF) | payer OTHER, SELFPAY | LOC: RAD 10:58 | PROVIDERS: ATTENDING PHYSICIAN Internal Medicine Rheumatology; FAMILY PHYSICIAN Family Medicine | DX: M05.9 Rheumatoid arthritis with rheumatoid factor, unspecified (principal); M81.0 Age-related osteoporosis without current pathological fracture; Z79.52 Long term (current) use of systemic steroids | CPT/HCPCS: 77080 ==

== ENCOUNTER → 2024-09-19 15:21 | Outpatient (REF) | payer OTHER, SELFPAY | LOC: RAD 15:21 | PROVIDERS: ATTENDING PHYSICIAN Surgery Vascular Surgery; FAMILY PHYSICIAN Family Medicine | DX: I77.1 Stricture of artery (principal); I70.0 Atherosclerosis of aorta | CPT/HCPCS: 75635; Q9967 ==

== ENCOUNTER 2024-10-04 07:50 | Outpatient (REF) | payer OTHER, SELFPAY ==
[2024-10-04] VITALS (9 sets, daily range): BP systolic 61–126; BP diastolic 48–79; BMI 18.9
[2024-10-04 08:27] LABS: % Basophils 0.7 % (0-2); % Eosinophils 0.8 % (0-6); % Immature Granulocytes 0.9 % (0-0.5); % Lymphocytes 9.2 % (20.5-51.1); % Monocytes 5.7 % (1.7-9.3); % Neutrophils 82.7 % (42.2-75.2); Absolute Basophils 0.1 10^3/uL (0-0.2); Absolute Eosinophils 0.1 10^3/uL (0-0.7); Absolute Immature Granulocytes 0.1 10^3/uL (0-0.05); Absolute Lymphocytes 1.2 10^3/uL (1.2-3.4); Absolute Monocytes 0.7 10^3/uL (0.1-0.6); Absolute Neutrophils 10.8 10^3/uL (1.4-6.5); Hematocrit 35.5 % (39.0-52.0); Hemoglobin 11.3 g/dL (13.0-18.0); Mean Corp Hgb Conc. 31.8 g/dL (33.0-37.0); Mean Corpuscular Hgb 25.1 pg (27.0-31.0); Mean Corpuscular Volume 78.9 fL (80.0-94.0); Mean Platelet Volume 9.3 fL (7.4-10.4); Nucleated Red Blood Cells % 0 % (-); Platelet Count 375 10^3/uL (130-400); Red Cell Dist. Width 19.9 % (11.5-14.5)
[2024-10-04 08:37] LABS: INR 1.17; PT 15.2 Sec (11.4-14.6)
== END 2024-10-04 14:30 | disposition home or self-care (01) ==
LOC: RADI 07:50
PROVIDERS: ATTENDING PHYSICIAN Family Medicine; OTHER PHYSICIAN Physician Assistant
DX: C78.7 Secondary malignant neoplasm of liver and intrahepatic bile duct (principal); C61 Malignant neoplasm of prostate; D68.8 Other specified coagulation defects
CPT/HCPCS: 88307; 36415; 47000; 76942; 85025; 85610; 88333; 88341; 88342; 99152; 99153

== ENCOUNTER → 2024-10-28 15:32 | Outpatient (REF) | payer OTHER, SELFPAY | LOC: HWRAD 15:32 | PROVIDERS: ATTENDING PHYSICIAN Internal Medicine Hematology & Oncology; FAMILY PHYSICIAN Family Medicine | DX: Z85.46 Personal history of malignant neoplasm of prostate (principal); C78.7 Secondary malignant neoplasm of liver and intrahepatic bile duct; C44.02 Squamous cell carcinoma of skin of lip | CPT/HCPCS: 76700 ==

== ENCOUNTER → 2024-11-01 11:58 | Outpatient (REF) | payer OTHER, SELFPAY | LOC: PET 11:58 | PROVIDERS: ATTENDING PHYSICIAN Internal Medicine Hematology & Oncology | DX: C44.02 Squamous cell carcinoma of skin of lip (principal) | CPT/HCPCS: 78816; A9552 ==